=== PATIENT | male | born 1995 | race Caucasian/White ===

== ENCOUNTER 2017-05-15 08:21 | Emergency (ER) | payer BC ==
[2017-05-15] MEDS ORDERED: ORPHENADRINE 30 MG/ML 2 ML VIAL IM STA (08:44)
[2017-05-15] MEDS ORDERED: KETOROLAC 60 MG/2 ML VIAL IM STA (08:44)
--- NOTE | 2017-05-15 08:46 | ED ---
Back Pain HPI - General Chief Complaint: Back Pain/Injury Stated Complaint: Back pain Time Seen by Provider: 05/15/17 08:39 Source: patient, RN notes reviewed Limitations: no limitations - History of Present Illness Initial Comments: 21-year-old male presents to the emergency department with a chief complaint of thoracic back pain. Patient states that she he has had this pain since yesterday when he felt a pop when he was moving a car battery. Patient states it's in his upper back. Patient states there is no radiation. Patient states certain movements will make the pain worse. Patient denies any history of pain like this in the past. Patient states that is not currently having any other symptoms.Patient denies any recent fever, chills, shortness of breath, chest pain, abdominal pain, nausea vomiting, numbness or tingling, dysuria or hematuria, constipation or diarrhea, headaches or visual changes, or any other current symptoms. - Related Data Previous Rx's Medication Instructions Recorded Ibuprofen [Motrin] 600 mg PO Q6HR PRN #20 tab 05/15/17 Orphenadrine [Norflex] 100 mg PO Q12H #10 tablet.er 05/15/17 Allergies Allergy/AdvReac Type Severity Reaction Status Date / Time No Known Allergies Allergy Verified 05/15/17 08:40 Review of Systems ROS Statement: Those systems with pertinent positive or pertinent negative responses have been documented in the HPI. ROS Other: All systems not noted in ROS Statement are negative. Past Medical History Past Medical History: Asthma History of Any Multi-Drug Resistant Organisms: None Reported Past Surgical History: No Surgical Hx Reported Past Psychological History: No Psychological Hx Reported Smoking Status: Current every day smoker Past Alcohol Use History: None Reported Past Drug Use History: None Reported General Exam Limitations: no limitations General appearance: alert, in no apparent distress ENT exam: Present: normal exam, mucous membranes moist Neck exam: Present: normal inspection. Absent: tenderness, meningismus, lymphadenopathy Respiratory exam: Present: normal lung sounds bilaterally. Absent: respiratory distress, wheezes, rales, rhonchi, stridor Cardiovascular Exam: Present: regular rate, normal rhythm, normal heart sounds. Absent: systolic murmur, diastolic murmur, rubs, gallop, clicks Back exam: Present: normal inspection, full ROM, tenderness (minimal through the lower thoracic spine) Neurological exam: Present: alert, oriented X3 Psychiatric exam: Present: normal affect Skin exam: Present: warm, dry, intact, normal color. Absent: rash Course Vital Signs 05/15/17 08:31 Temperature 97.8 F Pulse Rate 76 Respiratory 20 Rate Blood Pressure 136/85 O2 Sat by Pulse 100 Oximetry Medical Decision Making - Medical Decision Making 21-year-old male presents emergency Department chief complaint of thoracic back pain. This time x-rays are reviewed and negative. This time patient appears to have a thoracic strain. This time we discussed using medication as prescribed. Discussed return parameters and follow-up and all the patient's questions. he stated he understood and he is in agreement with the plan. He' ll be discharged. Disposition Clinical Impression: Strain of thoracic region Disposition: HOME SELF-CARE Condition: Stable Instructions: Thoracic Back Strain (ED) Additional Instructions: Please use medication as discussed. Please follow up with family doctor if symptoms have not improved over the next two days. Please return to the emergency room if your symptoms increase or worsen or for any other concerns. Prescriptions: Ibuprofen [Motrin] 600 mg PO Q6HR PRN #20 tab PRN Reason: Pain Orphenadrine [Norflex] 100 mg PO Q12H #10 tablet.er Referrals: Juan Manuel Cross MD [Primary Care Provider] - 1-2 days Time of Disposition: 09:31
--- NOTE | 2017-05-15 09:24 | XR ---
EXAMINATION TYPE: XR thoracic spine 2V DATE OF EXAM: 05/15/2017 COMPARISON: NONE HISTORY: back pain Alignment is anatomic. There is no compression deformities. Vertebral body height and disc interspa tee are maintained. There is a slight curvature of the spine. IMPRESSION: 1. No acute abnormality.
[2017-05-15 09:58] VITALS: BP 124/70; PULSE 72; RESP 16; TEMP 97.9
== END 2017-05-15 10:19 | disposition home or self-care (01) ==
LOC: EC 08:21
DX: S29.012A Strain of muscle and tendon of back wall of thorax, initial encounter (principal); F17.200 Nicotine dependence, unspecified, uncomplicated; X50.0XXA Overexertion from strenuous movement or load, initial encounter
CPT/HCPCS: 99283; 96372 ×2; 72070; J2360; J1885

== ENCOUNTER → 2017-12-16 | Outpatient (CLI) | payer BC ==
[2017-12-16 12:25] LABS: Basophils # (A) 0.1 k/uL (0-0.2); Basophils % (A) 1 %; Eosinophils # (A) 0.6 k/uL (0-0.7); Eosinophils % (A) 7 %; HCT 44.1 % (39.0-53.0); HGB 14.6 gm/dL (13.0-17.5); Lymphocytes # (A) 2.7 k/uL (1.0-4.8); Lymphocytes % (A) 29 %; MCH 29.6 pg (25.0-35.0); MCHC 33.2 g/dL (31.0-37.0); MCV 89.2 fL (80.0-100.0); Mean Platelet Volume 7.5; Monocytes # (A) 0.5 k/uL (0-1.0); Monocytes % (A) 6 %; Neutrophils # (A) 5.2 k/uL (1.3-7.7); Neutrophils % (A) 56 %; Platelet Count 236 k/uL (150-450); RBC 4.94 m/uL (4.30-5.90); RDW 12.4 % (11.5-15.5); WBC 9.3 k/uL (3.8-10.6)
[2017-12-16 12:33] LABS: ALT 73 U/L (21-72); AST 27 U/L (17-59); Albumin 3.6 g/dL (3.5-5.0); Alkaline Phosphatase 85 U/L (38-126); Anion Gap 8 mmol/L; Blood Urea Nitrogen 18 mg/dL (9-20); Calcium 9.7 mg/dL (8.4-10.2); Carbon Dioxide 28 mmol/L (22-30); Chloride 104 mmol/L (98-107); Cholesterol 226 mg/dL (<200); Glucose 101 mg/dL (74-99); HDL Cholesterol 53 mg/dL (40-60); LDL Cholesterol,Calculated 139 mg/dL (0-99); Potassium 4.7 mmol/L (3.5-5.1); Sodium 140 mmol/L (137-145); Total Bilirubin 0.5 mg/dL (0.2-1.3); Total Protein 6.6 g/dL (6.3-8.2); Triglycerides 171 mg/dL (<150)
== END | disposition home or self-care (01) ==
LOC: LABWHC1 11:50
PROVIDERS: ATTEND Family Medicine
DX: Z00.00 Encounter for general adult medical examination without abnormal findings (principal)
CPT/HCPCS: 36415; 80053; 80061; 84443; 85025

== ENCOUNTER 2018-08-22 08:40 | Emergency (ER) | payer BC ==
[2018-08-22 09:06] VITALS: BP 141/89; PULSE 77; RESP 18; TEMP 98.2
--- NOTE | 2018-08-22 09:18 | ED ---
Lower Extremity Injury HPI - General Chief Complaint: Extremity Injury, Lower Stated Complaint: foot pain Time Seen by Provider: 08/22/18 09:06 Source: patient, RN notes reviewed Limitations: no limitations - History of Present Illness Initial Comments: 22-year-old male presents emergency Department chief complaint of right foot injury. Patient states he stepped in a pothole and twisted his foot. Patient went to foot pain on the lateral aspect. He's had no prior fractures. Denies any numbness or tingling. Patient states she has no ankle pain no proximal tib- fib pain. - Related Data Home Medications Medication Instructions Recorded Confirmed Acetaminophen Tab [Tylenol Tab] 325 mg PO Q4H PRN 08/22/18 08/22/18 Allergies Allergy/AdvReac Type Severity Reaction Status Date / Time No Known Allergies Allergy Verified 08/22/18 09:32 Review of Systems ROS Statement: Those systems with pertinent positive or pertinent negative responses have been documented in the HPI. ROS Other: All systems not noted in ROS Statement are negative. Past Medical History Past Medical History: Asthma History of Any Multi-Drug Resistant Organisms: None Reported Past Surgical History: No Surgical Hx Reported Past Psychological History: No Psychological Hx Reported Smoking Status: Former smoker Past Alcohol Use History: Occasional Past Drug Use History: None Reported General Exam Limitations: no limitations General appearance: alert, in no apparent distress Head exam: Present: atraumatic, normocephalic, normal inspection Neck exam: Present: normal inspection. Absent: tenderness, meningismus, lymphadenopathy Respiratory exam: Present: normal lung sounds bilaterally. Absent: respiratory distress, wheezes, rales, rhonchi, stridor Cardiovascular Exam: Present: regular rate, normal rhythm, normal heart sounds. Absent: systolic murmur, diastolic murmur, rubs, gallop, clicks Extremities exam: Present: other (Right ankle there is no tenderness tenderness along the lateral aspect of the right foot neurovascular intact no proximal tib- fib tenderness no obvious deformity mild swelling) Course Vital Signs 08/22/18 09:04 Temperature 98.2 F Pulse Rate 77 Respiratory 18 Rate Blood Pressure 141/89 O2 Sat by Pulse 98 Oximetry Medical Decision Making - Medical Decision Making 22-year-old male presented to emergency room for foot injury. X-rays were obtained which reveals no acute fracture. Expand that he does have a foot sprain if he has no improvement 1 week that he needs to follow-up for recheck and return for any worsening symptoms. Disposition Clinical Impression: Foot sprain Disposition: HOME SELF-CARE Condition: Stable Instructions: Foot Sprain (ED) Additional Instructions: Please return to the Emergency Department if symptoms worsen or any other concerns. Is patient prescribed a controlled substance at d/c from ED?: No Referrals: Juan Manuel Cross MD [Primary Care Provider] - 1-2 days Time of Disposition: 10:21
--- NOTE | 2018-08-22 09:41 | XR ---
EXAMINATION TYPE: XR foot complete RT DATE OF EXAM: 08/22/2018 COMPARISON: NONE HISTORY: Pain TECHNIQUE: Three views are submitted. FINDINGS: The osseous structures are intact. There is no acute fracture or dislocation. Mild hypertrophic ch chago of the head of the first metatarsal.. IMPRESSION: 1. No acute fracture or dislocation. If symptoms persist, follow-up exam in 7 to 10 days could be ob tained.
== END 2018-08-22 10:26 | disposition home or self-care (01) ==
LOC: EC 08:40
DX: S93.601A Unspecified sprain of right foot, initial encounter (principal); Z87.891 Personal history of nicotine dependence; X50.1XXA Overexertion from prolonged static or awkward postures, initial encounter
CPT/HCPCS: 99283

== ENCOUNTER 2019-10-11 01:42 | Emergency (ER) | payer BC ==
[2019-10-11] MEDS ORDERED: IPRATROPIUM-ALBUTEROL 3 ML NEB INHALATION STA (02:09)
[2019-10-11] MEDS ORDERED: methylPREDNISolone SOD SUCCI 125 MG/2 ML VIAL IM ONE (02:09)
--- NOTE | 2019-10-11 02:38 | XR ---
EXAMINATION TYPE: XR chest 2V DATE OF EXAM: 10/11/2019 COMPARISON: NONE HISTORY: Chest pain fever and cough TECHNIQUE: Frontal and lateral views of the chest are obtained. FINDINGS: There is a mild airspace infiltrate left lower lobe. The other lung jauregui are clear. Hear t size is normal. There is no pleural effusion. Bony thorax appears normal. IMPRESSION: There is a mild left lower lobe pneumonia. Normal heart.
--- NOTE | 2019-10-11 02:38 | ED ---
URI HPI - General Chief Complaint: Upper Respiratory Infection Stated Complaint: RUBY Time Seen by Provider: 10/11/19 02:04 Source: patient Mode of arrival: ambulatory Limitations: no limitations - History of Present Illness Initial Comments: 23-year-old male presents today for chief complaint of fever or cough. Patient states he has had a cough for the past few days as well as a fever for the past 2. Patient states that he has a history of asthma and has slight shortness of breath. Patient denies any leg swelling chest pain nausea epigastric jaw or arm pain. Patient denies any sore throat diarrhea vomiting abdominal pain or any other associated symptoms. Remaining review of systems negative, upon arrival patient appears well on arrival nontoxic. No history of immunocompromise or recent admissions. - Related Data Previous Rx's Medication Instructions Recorded Azithromycin [Zithromax Z-pack] 0 mg PO DIRECTED #6 tab 10/11/19 Allergies Allergy/AdvReac Type Severity Reaction Status Date / Time No Known Allergies Allergy Verified 10/11/19 01:50 Review of Systems ROS Statement: Those systems with pertinent positive or pertinent negative responses have been documented in the HPI. ROS Other: All systems not noted in ROS Statement are negative. Past Medical History Past Medical History: Asthma History of Any Multi-Drug Resistant Organisms: None Reported Past Surgical History: No Surgical Hx Reported Past Psychological History: No Psychological Hx Reported Smoking Status: Current some day smoker Past Alcohol Use History: Occasional Past Drug Use History: None Reported General Exam - General Exam Comments Initial Comments: General: The patient is awake and alert, in no distress, and does not appear acutely ill. Eye: +3 mm pupils are equal, round and reactive to light, extra-ocular movements are intact. No nystagmus. There is normal conjunctiva bilaterally. No signs of icterus. No photophobia Ears, nose, mouth and throat: There are moist mucous membranes and no oral lesions. Oropharynx was not erythematous there is no tonsillar enlargement exudates or lesions. Uvula midline. No anterior cervical lymphadenopathy. Rhinorrhea, clear and bilateral nares. No tripoding, no drooling. Neck: The neck is supple, there is no tenderness or JVD. No nuchal rigidity negative Brudzinski and Kernig Cardiovascular: There is a regular rate and rhythm. No murmur, rub or gallop is appreciated. Respiratory: Lungs sounds are slightly diminshed. respirations are non-labored, breath sounds are equal. No wheezes, stridor, rales, or rhonchi. No retractions or abdominal breathing. Gastrointestinal: Soft, non-distended, non-tender abdomen without masses or organomegaly noted. There is no rebound or guarding present. Bowel sounds are unremarkable. Musculoskeletal: Normal ROM, no tenderness. Strength 5/5. Sensation intact. Radial pulses equal bilaterally 2+. Neurological: A&O x 3. CN II-XII intact grossly, There are no obvious motor or sensory deficits. Coordination appears grossly intact. Speech appears normal, no muffling. Skin: Skin is warm and dry and no rashes or lesions are noted. No extremity edema Psychiatric: Cooperative Limitations: no limitations Course Vital Signs 10/11/19 10/11/19 10/11/19 01:47 02:32 02:45 Temperature 98.4 F Pulse Rate 109 H 108 H 104 H Respiratory 17 Rate Blood Pressure 136/85 O2 Sat by Pulse 97 Oximetry 10/11/19 03:57 Temperature 98.7 F Pulse Rate 108 H Respiratory 18 Rate Blood Pressure 150/90 O2 Sat by Pulse 97 Oximetry Medical Decision Making - Medical Decision Making 23-year-old male presents today for chief complaint of cough, fever. Pneumonia on CXR. Given Rocephin and Duoneb in treatment. Lungs clear on reevaluation. Patient influenza (-). WIll be discharged with zpack for treatment of CAP. Testes attending provider patient was discharged appearing well - Lab Data Lab Results 10/11/19 Range/Units 02:45 Influenza Type A RNA Not Detected (Not Detectd) Influenza Type B (PCR) Not Detected (Not Detectd) Disposition Clinical Impression: Pneumonia, Cough, Fever Disposition: HOME SELF-CARE Condition: Good Instructions (If sedation given, give patient instructions): Pneumonia (ED) Additional Instructions: Please use medication as discussed. Please follow-up with family doctor in the next 2 days. Please return to emergency room if the symptoms increase or worsen or for any other concerns. Prescriptions: Azithromycin [Zithromax Z-pack] 0 mg PO DIRECTED #6 tab Is patient prescribed a controlled substance at d/c from ED?: No Referrals: Juan Manuel Cross MD [Primary Care Provider] - 1-2 days Time of Disposition: 03:28
[2019-10-11] MEDS ORDERED: cefTRIAXone 1,000 MG VIAL (IM USE) IM STA (02:48)
[2019-10-11] MEDS: LIDOCAINE 1% INJ 10MG/ML (20 ML MDV) SQ ONE ×2 (03:11)
[2019-10-11] MEDS ORDERED: LIDOCAINE 1% INJ 10MG/ML (20 ML MDV) SQ ONE (03:12)
[2019-10-11 03:58] VITALS: BP 150/90; PULSE 108; RESP 18; TEMP 98.7
--- NOTE | 2019-10-12 05:22 | CDI ---
Documentation Clarification OP Dear Angelica Araya, PAC Please provide procedure done related to lidocaine administered. Thank you, Kana Mckenzie Communications Clerk If you have any questions, please contact [employer] at [phone] [facility]
== END 2019-10-11 03:59 | disposition home or self-care (01) ==
LOC: EC 01:42
DX: J18.9 Pneumonia, unspecified organism (principal); F17.200 Nicotine dependence, unspecified, uncomplicated; Z87.09 Personal history of other diseases of the respiratory system
CPT/HCPCS: 99285 ×2; 96372 ×4; 94640; 87502; 71046; J2930; J2001; J0696